=== PATIENT | male | born 1995 | race Caucasian/White ===

== ENCOUNTER 2017-12-20 22:09 | Emergency (ER) | payer BC ==
[~2017-12-20] VITALS: Ht 182.9 cm; Wt 85.7 kg
[2017-12-20 22:34] LABS: URINE BLOOD 3+ (Negative); URINE CLARITY SL CLOUDY; URINE COLOR YELLOW; URINE GLUCOSE-RANDOM* NEGATIVE (Negative); URINE KETONES NEGATIVE (Negative); URINE LEUKOCYTES-REFLEX NEGATIVE (Negative); URINE NITRITE-REFLEX NEGATIVE (Negative); URINE PROTEIN (DIPSTICK) 1+ (Negative); URINE SPECIFIC GRAVITY >= 1.030 (1.005-1.035); URINE UROBILINOGEN 0.2 E.U./dl (0.2-1.0)
[2017-12-20 22:37] LABS: ICTOTEST (BILI CONFIRMATORY) Negative (Negative); URINE BILIRUBIN NEGATIVE (Negative)
[2017-12-20 22:44] LABS: ABSOLUTE NEUTROPHILS 5.7 thou/uL (1.4-8.2); BASOPHILS 0.3 % (0.0-2.0); EOSINOPHILS 1.6 % (0.0-3.0); HEMATOCRIT 40.1 % (42.0-52.0); HEMOGLOBIN 13.9 gm/dL (14.0-18.0); LYMPHOCYTES 16.1 % (24.0-44.0); MCH 28.4 pg (26.0-34.0); MCHC 34.6 g/dL (28.0-37.0); MONOCYTES 7.2 % (1.0-8.0); PLATELET COUNT 166 thou/uL (150-400); POLYS 74.8 % (36.0-66.0); RDW 13.2 % (10.5-14.5); WBC 7.6 thou/uL (4.0-11.0)
[2017-12-20 22:44] LABS: CASTS None Seen /LPF (None Seen); CRYSTALS None Seen /LPF (None Seen)
[2017-12-20 22:45] LABS: SQUAMOUS None Seen /LPF (0-3); URINE WBC-REFLEX 0-5 Rare /HPF (0-5)
[2017-12-20 22:46] LABS: BACTERIA-REFLEX 1-9 Few /HPF (None Seen)
[2017-12-20 22:50] LABS: CALCIUM 8.7 mg/dL (8.5-10.1); CREATININE 1.2 mg/dL (0.7-1.3); POTASSIUM 3.7 mmol/L (3.5-5.1)
[2017-12-20 22:57] LABS: TOTAL BILIRUBIN 0.9 mg/dL (<0.1-1.0); TOTAL PROTEIN 7.1 g/dL (6.4-8.2)
[2017-12-21] MEDS ORDERED: NORCO 5-325 TA1 EACH PO (00:45)
[2017-12-21] MEDS ORDERED: ZOFRAN ODT4 MG PO (00:45)
[2017-12-21 01:03] VITALS: BP 99/52
== END 2017-12-21 01:04 | disposition home or self-care (01) ==
LOC: ER 22:09
PROVIDERS: Physician Assistant
DX: N20.1 Calculus of ureter (principal); Z88.8 Allergy status to other drugs, medicaments and biological substances; F17.210 Nicotine dependence, cigarettes, uncomplicated